=== PATIENT | female | born 1955 | race Caucasian/White ===

== ENCOUNTER 2019-08-04 12:22 | Inpatient (IN) | payer BC, MEDICARE, SELFPAY ==
[2019-08-04] VITALS (19 sets, daily range): BP systolic 113–140; BP diastolic 60–71; PULSE 73–106; RESP 27–56; TEMP 36.6–38.4; O2SAT 88–99; BMI 27.2
--- NOTE | ~2019-08-04 | XR_ITS ---
EXAMINATION: XR chest 1V portable DATE: 08/06/2019 05:51 INDICATION: Shortness of breath. Acute respiratory failure. TECHNIQUE: A single frontal view of the chest was obtained. COMPARISON: Chest single view 08/04/2019 FINDINGS: The patient is rotated to her right. There are airspace opacities in all right lung zones w ith relative sparing of the lung base. No pleural effusion or pneumothorax. Cardiomegaly is noted. Th ere are surgical clips in right axilla. IMPRESSION: 1. Right lung airspace opacities with improvement, consistent with pneumonia. Reviewed, dictated and finalized at location A.
--- NOTE | ~2019-08-04 | XR_ITS ---
EXAMINATION: XR chest 1V portable DATE: 08/04/2019 13:19 INDICATION: Shortness of breath. TECHNIQUE: A single frontal view of the chest was obtained. COMPARISON: None. FINDINGS: There are airspace opacities in all right lung zones with a peripheral predominance. There is mild atelectasis in left midlung zone. No pleural effusion or pneumothorax. There are prominent pa racardial fat pads. Surgical clips overlie right axilla. IMPRESSION: 1. Airspace opacities in all right lung zones with a peripheral predominance, consistent with pneumon ia. Reviewed, dictated and finalized at location A. IMPRESSION: 1. Airspace opacities in all right lung zones with a peripheral predominance, c onsistent with pneumonia.
--- NOTE | ~2019-08-04 | XR_ITS ---
XR chest 1V portable 08/09/2019 09:06 Indication: Follow-up infiltrates Procedure: AP portable chest Comparison: 08/07/2019 Findings: Heart size normal. Improving right upper lobe airspace disease. No edema, pleural effusion or pneumothorax. No acute osseous abnormality. Impression: 1: Improving right upper lobe airspace disease which may represent resolving pneumonia and/or atelect asis. Reviewed, dictated and finalized at location A. Impression: 1: Improving right upper lobe airspace disease which may represent resolving pn eumonia and/or atelectasis.
--- NOTE | ~2019-08-04 | CT_ITS ---
EXAMINATION: CTA chest PE protocol DATE: 08/06/2019 14:34 INDICATION: Acute respiratory failure. TECHNIQUE: Computed tomography angiography (CTA) of the chest was performed with 100 mL Omnipaque-350 intravenous contrast timed to evaluate the pulmonary arteries. Coronal maximum intensity projection 3D-reconstructions were created by the technologist. Automated exposure control and iterative reconst ruction technique were employed. The dose-length product was 684.00 mGy-cm. COMPARISON: Chest single view 08/06/2019 FINDINGS: There is mild emphysema. There is mild atelectasis in left lung. There are airspace and primo undglass opacities in right upper lobe, right middle lobe, and superior segment right lower lobe with air bronchograms, consistent with pneumonia. There is a small right pleural effusion. There is depen dent passive atelectasis in basilar right lower lobe. The heart size is normal. There are coronary ar yinka calcifications. No pericardial effusion. There is no pulmonary embolus. There is mild mediastina l and bilateral hilar lymphadenopathy. There is a 2.1 cm mass in left adrenal gland measuring soft ti ssue attenuation. There are changes of right mastectomy with right breast implant. There are bridging endplate osteophytes at multiple levels in the spine, consistent with diffuse idiopathic skeletal hy perostosis (DISH). There are hemangiomas in T6, T12, and L1 vertebral bodies. IMPRESSION: 1. Right lung pneumonia, worst in right upper lobe. 2. Small right pleural effusion. 3. Mild mediastinal and bilateral hilar lymphadenopathy, likely reactive. 4. No pulmonary embolus. 5. 2.1 cm left adrenal mass, which may be an adenoma or less likely metastatic disease. Reviewed, dictated and finalized at location A.
--- NOTE | ~2019-08-04 | XR_ITS ---
XR chest 1V portable DATE: 08/07/2019 05:39 INDICATION: Acute respiratory failure TECHNIQUE: Portable AP chest on 08/07/2019 at 0514 hours COMPARISON: 08/06/2019 portable AP chest at 0521 hours 08/06/2019 CT pulmonary scan FINDINGS: There is increased opacification of the right upper lobe consistent with right upper lobe c onsolidation, pneumonia. There is right lower lobe infiltrate as well. There is some volume loss of t he right lung compared to the left, with mild rightward shift of heart and mediastinum. The left lung appears essentially clear. No significant pleural fluid is evident. Surgical clips, right axillary area. Osteopenia. IMPRESSION: Increased right sided infiltrate involving particularly the right upper lobe. Reviewed, dictated and finalized at location A. IMPRESSION: Increased right sided infiltrate involving particularly the right u pper lobe.
--- NOTE | ~2019-08-04 | US_ITS ---
EXAMINATION: US venous doppler [facility] DATE: 08/05/2019 14:29 INDICATION: Shortness of breath. TECHNIQUE: Grayscale ultrasound images without and with compression and Doppler ultrasound images of the bilateral lower extremity veins were obtained. COMPARISON: None. FINDINGS: The visualized portions of right common femoral vein, profunda (deep) femoral vein, femoral vein, pop liteal vein, peroneal veins, posterior tibial veins, and greater saphenous vein outflow are patent. The visualized portions of left common femoral vein, profunda femoral vein, femoral vein, popliteal v ein, peroneal veins, posterior tibial veins, and greater saphenous vein outflow are patent. IMPRESSION: 1. No deep venous thrombosis. Reviewed, dictated and finalized at location A.
--- NOTE | 2019-08-04 12:23 | ECG_ITS ---
Measurements Intervals [place] Rate: 105 P: 43 MA: 138 QRS: 61 QRSD: 97 T: -29 QT: 299 QTc: 396 Interpretive Statements SINUS TACHYCARDIA BORDERLINE ST-T WAVE ABNORMALITY- ANTEROLAT/INF LEADS BASELINE WANDER- V4-V6 ABNORMAL ECG Electronically Signed On 08-04-2019 12:43:02 CDT by Tyrone Granados D.O.
--- NOTE | 2019-08-04 12:25 | ED.SOB ---
HPI - SOB/Dyspnea General Chief Complaint: Shortness of Breath/Dyspnea Stated Complaint: DIFFICULTY BREATHING History of Present Illness HPI Narrative: 64 yo female w/ h/o HTN BIBEMS from urgent care for SOB. She has had cough, congestion, and SOB for the past 3 days. Worsening in severity. Today developed fever, 101.3. She went to urgent care and was found to be hypoxic and transfered here for further evaluation. She is not aware of any sick contacts. She does not smoke and has no breathing problems at baseline. Related Data Home Medications Medication Instructions Recorded Confirmed chlorthalidone 25 mg PO DAILY 08/04/19 08/04/19 diphenhydramine-acetaminophen 1 tablet PO HS 08/04/19 08/04/19 [Tylenol PM Extra Strength] metoprolol succinate 37.5 mg PO HS 08/04/19 08/04/19 rosuvastatin 5 mg PO DAILY 08/04/19 08/04/19 zolpidem 5 mg PO HS 08/04/19 08/04/19 Allergies Allergy/AdvReac Type Severity Reaction Status Date / Time No Known Allergies Allergy Verified 08/04/19 13:10 Review of Systems Review of Systems: All systems reviewed & are unremarkable except as noted in HPI and below Constitutional: Constitutional: Reports fatigue and Reports fever(s) ENT: Denies sore throat Comments: Dry mouth Cardiovascular: Cardiovascular: Denies chest pain Respiratory: Respiratory: Reports chest congestion, Reports cough and Reports dyspnea Gastrointestinal: Gastrointestinal: Denies abdominal pain, Denies nausea and Denies vomiting Genitourinary: Genitourinary: Denies hematuria and Denies dysuria Musculoskeletal: Musculoskeletal: Denies back pain Neurologic: Denies confusion, Denies dizziness and Denies numbness Endocrine: Endocrine: Denies polydipsia and Denies polyuria Hematologic/Lymphatic: Hematologic/Lymphatic: Denies easy bleeding and Denies easy bruising PMFSH Past Medical History Medical History HTN (hypertension) Social History Social History (Updated 08/04/19 @ 12:30 by Seymour Carmichael MD) Smoking status: Light tobacco smoker Tobacco type: cigarettes Alcohol intake: former Substance use: never Spiritual care concerns: No Exam Const: General: alert and ill appearing acutely Nutritional Appearance: well nourished Orientation/consciousness: patient oriented x3 Other: mild distress HENMT: Mouth: Yes dry mucous membranes Eyes: Pupils: Equal, round and reactive pupils present Resp: Effort & Inspection: labored and tachypneic Auscultation: rhonchi Cardio: Rate: tachycardic Rhythm: regular rhythm GI: GI Palp: Yes Soft to palpation and No Tenderness to palpation present (GI) Skin: General skin exam: normal color Neuro: General: patient oriented x3, moves all extremities and CN's II-XI intact bilaterally Speech: normal speech Extrem: General: normal to inspection Course Vital Signs Vital signs: Vital Signs Pulse Oximetry 93 08/04/19 12:43 Temperature 38.3 C H 08/04/19 15:54 Pulse Rate 90 08/04/19 16:00 Respiratory Rate 32 H 08/04/19 15:54 Blood Pressure 117/64 08/04/19 15:54 Pulse Oximetry 90 08/04/19 15:54 MDM - SOB/Dyspnea MDM Narrative Medical decision making narrative: She will require admission due to new O2 requirement. CXR appears more like typical pneumonia. Will still obtain swab to rule out COVID. Differential Diagnosis Differential diagnosis: Likely congestive heart failure and community acquired pneumonia Medical Records Attestation: I reviewed the patient's medical records. Lab Data Attestation: I reviewed the patient's lab results. Result diagrams: 08/04/19 12:38 08/04/19 12:38 Labs: Lab Results 08/04/19 08/04/19 08/04/19 Range/Units 12:38 12:38 12:38 WBC 17.5 H (4.5-10.0) K/mm3 RBC 4.31 (4.2-5.4) M/mm3 Hgb 13.8 (12.0-15.0) g/dL Hct 40.0 (37.0-47.0) % MCV 92.8 (80-100) fl MCH 32.0 (26-34) pg MCHC 34.
[2019-08-04 12:52] LABS: Basophils Absolute Auto 0.1 K/mm3 (0.0-0.1); Basophils Percent Auto 0.3 % (0.2-1.2); Hemoglobin 13.8 g/dL (12.0-15.0); Immature Granulocyte Absolute 0.09 K/mm3 (0.00-0.031); Immature Granulocyte Percent A 0.5 % (0-0.5); Lymphocytes Absolute Auto 0.74 K/mm3 (0.9-3.2); Lymphocytes Percent Auto 4.2 % (18.3-44.2); Mean Corpuscular HGB Conc 34.5 g/dl (32-36); Mean Corpuscular Volume 92.8 fl (80-100); Mean Platelet Volume 11.2 fl (7.4-10.4); Monocytes Percent Auto 5.4 % (2.6-8.5); Neutrophils Absolute Auto 15.6 K/mm3 (1.3-6.7); Neutrophils Percent Auto 89.6 % (45.5-73.1); Platelet Count Result 142 k/mm3 (150-375); Red Blood Count 4.31 M/mm3 (4.2-5.4); Red Cell Distribution Width 13.8 % (11.5-14.5); White Blood Count 17.5 K/mm3 (4.5-10.0)
[2019-08-04 13:01] LABS: INR 1.2; Prothrombin Time 14.9 Seconds (11.1-14.7)
[2019-08-04 13:02] LABS: Partial Thromboplastin Time 28.6 SECONDS (22.3-36.8)
[2019-08-04 13:03] LABS: Lactic Acid Reflex 1.8 mmol/L (0.7-2.1)
[2019-08-04 13:09] LABS: Add Urine Microscopic? YES; Appearance Urine Clear (Clear); Bacteria Urine Trace /hpf; Bilirubin Urine Negative (Negative); Blood Urine 1+ (Negative); Color Urine Amber (Yellow); Glucose Urine UA Negative (Negative); Ketones Urine 1+ mg/dL (Negative); Leukocyte Esterase Ur Negative LEU/UL (Negative); Mucus Urine Rare /lpf; Nitrate Urine Negative (Negative); Protein Urine 2+ mg/dL (Negative); RBC Urine 21-50 /hpf (0-2); Specific Grav Ur 1.024 (1.001-1.035); Squamous Epithelial Cell Urine Moderate /hpf (Few); Transitional Epi Cells Urine Rare /hpf (None Seen)
[2019-08-04 13:10] LABS: Alanine Aminotransferase 32 U/L (4-35); Albumin Level 3.9 g/dL (3.5-5.1); Alkaline Phosphatase 122 U/L (38-126); Aspartate Amino Transferase 33 U/L (14-36); Bilirubin,Total 1.6 mg/dL (0.2-1.3); Blood Urea Nitrogen 18 mg/dL (7-17); Calcium 9.7 mg/dL (8.4-10.2); Carbon Dioxide 18 mmol/L (22-30); Chloride 103 mmol/L (98-107); Estimated Glomerular Filt Rate > 60; Glucose 168 mg/dL (65-105); Lactate Dehydrogenase 492 U/L (313-618); Potassium 3.4 mmol/L (3.4-5.0); Sodium 133 mmol/L (137-145)
[2019-08-04] MEDS: SODIUM CHLORIDE 0.9% IV 1,000 ML 999 ML IV CONT (13:14)
[2019-08-04 13:25] LABS: D Dimer 2.55 ug/mL (<0.48)
[2019-08-04 13:52] LABS: CRP 38.6 mg/dL (<1.0)
--- NOTE | 2019-08-04 15:46 | ADMGEN ---
This patient, Catrachito Silva, was admitted to 3 [facility] Surg Room 328-01. Patient/family oriented to hospital policies and general routines including ID bracelet, bed and alarms, visiting hours, pain management, procedures, bathroom and other care routines, personal items, smoking policy, room service/diet, and visiting hours. Valuables list has been completed. Information on how to activate the Rapid Response Team has been discussed. Patient/Family are encouraged to report perceived risks to care and to ask questions if they do not understand what they are told or what they should do.
[2019-08-04 19:32] LABS: Base Excess ABG -2.5 mEq/l (+/-2.0); HCO3 ABG 19.2 mEq/l (22.0-26.0); PCO2 ABG 25.3 mmHg (35.0-45.0); PO2 ABG 71.6 mmHg (80.0-100.0); Total Hemoglobin 13.2 g/dL (12.0-18.0); pH ABG 7.497 (7.350-7.450)
[2019-08-04 19:33] LABS: Fractional Inspired Oxygen 100 %; Modified Allen's Test Pass; Oxygen Content ABG 17.7 %vol (16.0-22.0); Oxyhemoglobin 95.2 % THb (90.0-100.0); PO2 FiO2 Ratio Arterial Blood 0.82 %; Site Drawn LEFT RADIAL
[2019-08-04 19:34] LABS: Device NON-REBREATHER MASK
--- NOTE | 2019-08-04 20:41 | PM.IMHP ---
H&P: HPI History of Present Illness Chief complaint: Acute respiratory failure with hypoxia/pneumonia Narrative: Catrachito Silva is a 64 year old female who stated that Friday back she started to feel ill. She said she felt hot when she woke up in the middle and I and then got chills and has been running a low-grade fever around 99 point something. She developed a cough as well and shortness of breath. She stated she has not been outside of the home except ago grocery shopping. She stated she is around other people that were mask as she did as well. The patient developed a fever 101.3 today and return urgent care. She was found to be hypoxic and was transferred here for further evaluation. Chest x-ray was read as air space opacities in all right lung zones with peripheral predominance, consistent with pneumonia. Her CRP was 30.6. Ferritin was not measured. Her respirations were noted to be in the 50s. I obtained ABGs pH 7.497, CO2 25.3, PO2 71.6, bicarb 19.2. Patient was initially placed on 6 L per nasal cannula was satting 89%. Then we placed her on a non-rebreather and a high-flow nasal cannula. A non-rebreather was on 15 L per nasal cannula. I then called the welfare administrator and explained the situation who agreed to have the patient transferred to ICU. Patient was given a L fluids. She was started on azithromycin and Rocephin. She is given Tylenol for the fever. COVID testing is pending. White count is 17.5. Neutrophil percentage 89.6. Was noted to be 2.55. Date of service 08/04/2019. Review of Systems Review of Systems: All systems reviewed & are unremarkable except as noted in HPI and below Constitutional: Constitutional: Reports as per HPI and Reports no additional constitutional complaints Eyes: Eyes: Reports as per HPI and Reports no additional eye complaints ENT: Reports system reviewed and no additional complaints, except as documented and Reports Normal hearing present Cardiovascular: Cardiovascular: Reports no additional cardiovascular complaints Respiratory: Respiratory: Reports no additional respiratory complaints and Reports no additional respiratory complaints Gastrointestinal: Gastrointestinal: Reports as per HPI and Reports no additional gastrointestinal complaints Musculoskeletal: Musculoskeletal: Reports no additional musculoskeletal complaints Integumentary/Breasts: Skin/Breast: Reports system reviewed and no additional complaints, except as docu and Reports as per HPI Neurologic: Reports system reviewed and no additional complaints, except as documented, Reports as per HPI and Reports Normal hearing present Psychiatric: Psychiatric: Reports no additional psychiatric complaints and Reports as per HPI Endocrine: Endocrine: Reports no additional endocrine complaints Hematologic/Lymphatic: Hematologic/Lymphatic: Reports no additional hematologic/lymphatic complaints Allergic/Immunologic: Allergic/Immunologic: Reports no additional allergic/immunologic complaints [facility] Past Medical History Medical History (Updated 08/04/19 @ 21:05 by Dione Hart NP) Breast cancer With a mastectomy and chemotherapy HTN (hypertension) HTN (hypertension) with goal to be determined Hyperlipidemia Surgical History Surgical History (Updated 08/04/19 @ 20:58 by Dione Hart NP) H/O right mastectomy H/O: hysterectomy Family History Family History (Updated 08/04/19 @ 20:58 by Dione Hart NP) Father Alcoholism Mother CAD (coronary artery disease) Social History Social History (Updated 08/04/19 @ 20:59 by Dione Hart NP) Social History: The patient lives with her and desires to have him as her durable power traffic law attorney for healthcare. She desires to be a full code. She has had 2 children. 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 No alcohol or illicit drugs Smoking status: Light tobacco smoker Tobacco type: cigarettes Alcohol intake: former Substance use: never Spirit
--- NOTE | 2019-08-04 20:49 | PC.NURSE ---
report given to ICU. All questions answered. Esteban (spouse) notified and all questions answered with him. Patient transferring to room ICU 3 per bed. On NRB 15 L.
[2019-08-04 21:06] LABS: SARS-CoV-2 RNA PCR Negative
--- NOTE | 2019-08-04 21:06 | PC.NURSE ---
2054 transferred to ICU 3 via bed.
[2019-08-04] MEDS: METOPROLOL SUCCINATE EXT REL 12.5 MG TABCR PO (21:23)
[2019-08-04] MEDS: METOPROLOL SUCCINATE EXT REL 25 MG TABCR PO (21:24)
[2019-08-04] MEDS: ENOXAPARIN 40 MG/0.4 ML SYRINGE SUB-Q ×2 (21:25→21:26)
[2019-08-04] MEDS: ROSUVASTATIN 5 MG TABLET PO (21:25)
[2019-08-04 21:39] LABS: NT Pro B Type Natriuretic Pept 644 PG/ML (5-100)
[2019-08-04 21:42] LABS: Troponin I < 0.012 ng/mL (0.000-0.034)
--- NOTE | 2019-08-04 23:22 | PC.NURSE ---
Pt Transferred from room 328 at around 2100 08/04/2019 report given by Maria T
[2019-08-04] MEDS: MELATONIN 5 MG TABLET PO (23:53)
[2019-08-05] VITALS (15 sets, daily range): BP systolic 90–124; BP diastolic 49–83; PULSE 65–83; RESP 23–38; TEMP 36.7–37.2; O2SAT 93–97
--- NOTE | 2019-08-05 | ECHO_ITS ---
Patient Info Name: Catrachito Silva Age: 64 years : 1955 Gender: Female Ht: 66 in Wt: 168 lbs BSA: 1.90 m2 HR: 741 bpm BP: 121 / 73 mmHg Technical Quality: Good Exam Date: 08/05/2019 7:42 AM Exam Location: [facility] Patient Status: Inpatient Admit Date: 08/04/2019 Staff Ordering Physician: Dione Hart NP Material Control Clerk: Dwayne May RDCS, RT Attending Provider: Chelsea Lee MD Referring Physician: Hailey SIM; Exam Type: CA echo doppler color flow Study Info Indications R06.02 - Shortness of breath Complete two-dimensional, color flow and Doppler transthoracic echocardiogram is performed. Summary 1. Left ventricular chamber dimension is normal. 2. Ventricular septum is sigmoid shaped. 3. Left ventricular systolic function is normal, estimated at 60-65%. 4. There is mildly increased left ventricular wall thickness. 5. The left ventricular diastolic function is grade I diastolic dysfunction. 6. E/e' 9 is minimally elevated. 7. Global longitudinal strain is normal at -18.0%. 8. Left atrial chamber dimension is mildly enlarged. 9. Right atrial chamber dimension is mildly enlarged. 10. There is mild aortic valve sclerosis. Left Ventricle E/e' 9 is minimally elevated. Global longitudinal strain is normal at -18.0%. Ventricular septum is sigmoid shaped. Left ventricular chamber dimension is normal. Left ventricular systolic function is normal, estimated at 60-65%. There is mildly increased left ventricular wall thickness. The left ventricular diastolic function is grade I diastolic dysfunction. Right Ventricle Right ventricular chamber dimension is normal. Right ventricular systolic function is normal. Left Atria Left atrial chamber dimension is mildly enlarged. Right Atria Right atrial chamber dimension is mildly enlarged. Aortic Valve The aortic valve is trileaflet. There is mild aortic valve sclerosis. There is no aortic valve stenosis. There is no aortic valve regurgitation. Pulmonic Valve There is no pulmonic regurgitation. Mitral Valve There is no mitral valve stenosis. There is no mitral valve regurgitation. Tricuspid Valve There is no tricuspid valve regurgitation. Pericardium/Pleural There is no pericardial effusion. Inferior Vena Cava Normal inferior vena cava with >50% collapse upon inspiration consistent with normal right atrial pressure, 5 mmHg. Aorta The aortic root size at the sinus of Valsalva is normal. Left Ventricular Outflow Tract Name Value Normal LVOT 2D LVOT Diameter 1.9 cm LVOT Doppler LVOT Peak Velocity 119 cm/s LVOT Peak Gradient 6 mmHg LVOT Mean Gradient 3 mmHg LVOT VTI 23 cm LVOT VTI/AV VTI Ratio 0.8 LVOT Stroke Volume 67 ml LVOT CO 4.9 l/min LVOT CI 2.6 l/min/m2 Mitral Valve Name
[2019-08-05 00:25] LABS: Alveolar/Arterial O2 Gradient 275.9 mmHg; Base Excess ABG -0.5 mEq/l (+/-2.0); Fractional Inspired Oxygen 53 %; HCO3 ABG 21.9 mEq/l (22.0-26.0); Oxygen Content ABG 16.7 %vol (16.0-22.0); Oxygen Saturation ABG 95.3 % (95.0-100.0); Oxyhemoglobin 93.4 % THb (90.0-100.0); PCO2 ABG 29.5 mmHg (35.0-45.0); Total Hemoglobin 12.7 g/dL (12.0-18.0); pH ABG 7.489 (7.350-7.450)
[2019-08-05 00:27] LABS: Device HIGH FLOW NASAL CANN; Modified Allen's Test Pass; Site Drawn LEFT RADIAL
[2019-08-05 06:08] LABS: Basophils Absolute Auto 0.1 K/mm3 (0.0-0.1); Basophils Percent Auto 0.4 % (0.2-1.2); Eosinophils Percent Auto 0.1 % (0-4.4); Hematocrit 36.7 % (37.0-47.0); Hemoglobin 12.5 g/dL (12.0-15.0); Immature Granulocyte Absolute 0.17 K/mm3 (0.00-0.031); Lymphocytes Absolute Auto 2.29 K/mm3 (0.9-3.2); Lymphocytes Percent Auto 13.6 % (18.3-44.2); Mean Corpuscular HGB Conc 34.1 g/dl (32-36); Mean Corpuscular Hemoglobin 32.3 pg (26-34); Mean Corpuscular Volume 94.8 fl (80-100); Mean Platelet Volume 11.8 fl (7.4-10.4); Monocytes Percent Auto 6.2 % (2.6-8.5); Neutrophils Absolute Auto 13.3 K/mm3 (1.3-6.7); Neutrophils Percent Auto 78.7 % (45.5-73.1); Platelet Count Result 157 k/mm3 (150-375); Red Blood Count 3.87 M/mm3 (4.2-5.4); Red Cell Distribution Width 14.1 % (11.5-14.5); White Blood Count 16.9 K/mm3 (4.5-10.0)
[2019-08-05 06:30] LABS: Alanine Aminotransferase 25 U/L (4-35); Albumin Level 3.4 g/dL (3.5-5.1); Alkaline Phosphatase 92 U/L (38-126); Aspartate Amino Transferase 24 U/L (14-36); Bilirubin,Total 0.8 mg/dL (0.2-1.3); Blood Urea Nitrogen 17 mg/dL (7-17); Calcium 9.6 mg/dL (8.4-10.2); Carbon Dioxide 22 mmol/L (22-30); Chloride 106 mmol/L (98-107); Estimated CRCL calculation 74 ml/min; Estimated Glomerular Filt Rate > 60; Glucose 107 mg/dL (65-105); Lactate Dehydrogenase 345 U/L (313-618); Potassium 3.2 mmol/L (3.4-5.0); Sodium 137 mmol/L (137-145)
[2019-08-05 06:36] LABS: Troponin I < 0.012 ng/mL (0.000-0.034)
[2019-08-05 07:09] LABS: CRP 42.2 mg/dL (<1.0)
--- NOTE | 2019-08-05 08:42 | WPDCNINT ---
Assessment and Plan Assessment and plan (1) Acute respiratory failure with hypoxia: Code(s): J96.01 - Acute respiratory failure with hypoxia Status: Acute Assessment and Plan: She is currently on high-flow oxygen with 50 L and 50% FiO2. Her oxygen saturation was in mid to high 90s. She has been having mild tachypnea but does not seems to be in respiratory distress. Had ABG did not show acute hypercarbic respiratory failure to suggest respiratory fatigue. Subjectively she is feeling better as well. Will keep a close eye on her respiratory status. Low threshold for intubation if she has increased work of breathing and developing signs of respiratory fatigue. Continue to monitor ABG and chest x-ray. Wean oxygen if tolerated. Oxygen saturation target will be above 90% (2) Community acquired pneumonia: Qualifiers: Laterality: right Lung location: unspecified part of lung Qualified Code(s): J18.9 - Pneumonia, unspecified organism Code(s): J18.9 - Pneumonia, unspecified organism Status: Acute Assessment and Plan: Continue empiric ceftriaxone and azithromycin. Follow cultures. Send sputum culture if she is able to produce any. Check Legionella and strep antigen in urine. Continue to monitor chest x-ray for worsening of the airspace disease. Currently most of the airspace disease is on the right side. Will check procalcitonin level. (3) Suspected COVID-19 virus infection: Code(s): Z20.828 - Contact with and (suspected) exposure to other viral communicable diseases Status: Acute Assessment and Plan: Her COVID 19 test has been reported as negative. Will resend the test is her clinical presentation, thoracic imaging and inflammatory marker being on the higher side is suggestive of COVID-19 pneumonia. My level of suspicion is high and will want to have a repeat COVID-19 test before she can be taken off precautions. Continue droplet and contact precautions. (4) HTN (hypertension) with goal to be determined: Code(s): I10 - Essential (primary) hypertension Status: Acute Assessment and Plan: Will hold off metoprolol for now. Few blood pressure reading has been borderline low. Continue to monitor hemodynamics closely. (5) Elevated d-dimer: Code(s): R79.89 - Other specified abnormal findings of blood chemistry Status: Acute Assessment and Plan: D-dimer has been elevated which may be as a result of possible COVID-19 phenomena. If 2nd COVID-19 test come back as negative as well than she may probably need CT of the chest to rule out PE. It will further delineate the lung parenchyma as well. Will get echo and Doppler ultrasound of the lower extremity. I will start empiric therapeutic Lovenox considering high D-dimer with suspected COVID-19/thromboembolic disease causing her significant hypoxia with not so abnormal chest x-ray. (6) Hyperlipidemia: Code(s): E78.5 - Hyperlipidemia, unspecified Status: Chronic Assessment and Plan: Continue rosuvastatin. Additional Plan DVT prophylaxis with subcu heparin GI prophylaxis not indicated Continue to keep her NPO for now because of her higher oxygen requirement. She can be started on clear liquid diet later today if her respiratory status is stable. Critical care time spent is more than 36 minutes Due to a high probability of clinically significant, life threatening deterioration, the patient required my highest level of preparedness to intervene emergently and I personally spent this critical care time directly and personally managing the patient. This critical care time included obtaining a history; examining the patient; pulse oximetry; ordering and review of studies; arranging urgent treatment with development of a management plan; evaluation of patient's response to treatment; frequent reassessment; and discussions with other providers. It w
[2019-08-05] MEDS: ROSUVASTATIN 5 MG TABLET PO (08:57)
[2019-08-05] MEDS: POTASSIUM CHLORIDE 20 MEQ PACKET (FOR LIQUID) 40 MEQ PO ×2 (10:42→18:10)
[2019-08-05 14:57] LABS: D Dimer 3.92 ug/mL (<0.48)
--- NOTE | 2019-08-05 17:07 | PM.IMPN ---
Progress Note: A&P Assessment and Plan (1) Community acquired pneumonia: Qualifiers: Laterality: right Lung location: unspecified part of lung Qualified Code(s): J18.9 - Pneumonia, unspecified organism Code(s): J18.9 - Pneumonia, unspecified organism Status: Acute Assessment and Plan: The patient was started on azithromycin Rocephin. Blood and sputum cultures are pending as well as urine antigens. Continue with inhalers at this time. Patient is on high-flow oxygen at this time. She is comfortable not laboring and no CO2 retention. Initial COVID is negative and will be repeated (2) Suspected COVID-19 virus infection: Code(s): Z20.828 - Contact with and (suspected) exposure to other viral communicable diseases Status: Acute Assessment and Plan: Initial testing is negative but will be retested with the slight elevation and several defer markers and degree of hypoxemia.. (3) Hyperlipidemia: Code(s): E78.5 - Hyperlipidemia, unspecified Status: Chronic Assessment and Plan: Continue with rosuvastatin. (4) Acute respiratory failure with hypoxia: Code(s): J96.01 - Acute respiratory failure with hypoxia Status: Acute Assessment and Plan: No CO2 retention and as stated above not laboring appears comfortable at present setting. 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 Subjective Date/time seen: 08/05/19 17:07 Interval history: Date of visit 08/04. 64-year-old white female hypertension admitted with fever chills shortness of breath found to have right-sided infiltrate. High-flow oxygen to maintain O2 saturations but comfortable. She said she is starting to cough of phlegm now. No further chest pain appetite fair Exam Narrative: Exam Narrative: Blood pressure 124/66 pulse 74 saturating 97% on high-flow 50% nasal cannula Pupils equal reactive light sclera anicteric Lungs some crackles right side posteriorly with faint end expiratory wheeze CV regular rate rhythm no murmurs Abdomen is soft nontender no masses Extremities without edema distal pulses are 2+ Neuro alert pleasant cooperative no focal deficits Objective Data Vital Signs Vital Signs: Vital Signs - 24 hr 08/04/19 18:00 08/04/19 18:40 08/04/19 19:03 Temperature 37.2 C 38.1 C H 38.1 C H Pulse Rate 94 97 Respiratory Rate 30 H 52 H Blood Pressure 120/62 135/70 Pulse Oximetry 91 88 L 08/04/19 19:27 08/04/19 19:35 08/04/19 20:00 Temperature 38.4 C H Pulse Rate 84 85 Respiratory Rate 44 H 56 H Blood Pressure Pulse Oximetry 96 97 98 08/04/19 21:00 08/04/19 21:15 08/04/19 21:23 Temperature 36.6 C Pulse Rate 76 73 79 Respiratory Rate 37 H 36 H Blood Pressure 124/67 Pulse Oximetry 98 96 08/04/19 21:24 08/04/19 22:00 08/05/19 00:00 Temperature Pulse Rate 79 73 71 Respiratory Rate 27 H 35 H Blood Pressure 113/69 108/68 Pulse Oximetry 96 96 08/05/19 02:00 08/05/19 04:00 08/05/19 06:00 Temperature Pulse Rate 68 68 70 Respiratory Rate 35 H 35 H 32 H Blood Pressure 90/49 L 90/49 L 121/73 Pulse Oximetry 94 94 96 08/05/19 08:00 08/05/19 08:38 08/05/19 10:00 Temperature Pulse Rate 73 71 65 Respiratory Rate 31 H 34 H Blood Pressure 120/72 Pulse Oximetry 94 94 08/05/19 12:00 08/05/19 14:00 08/05/19 14:55 Temperature 36.7 C Pulse Rate 75 70 74 Respiratory Rate 38 H 23 H Blood Pressure 124/67 Pulse Oxi
[2019-08-05] MEDS: ENOXAPARIN 80 MG/0.8 ML SYRINGE 75 MG SUB-Q (17:55)
[2019-08-05] MEDS: MELATONIN 5 MG TABLET PO (23:21)
[2019-08-06] VITALS (16 sets, daily range): BP systolic 94–137; BP diastolic 55–84; PULSE 65–91; RESP 19–40; TEMP 36.9–37.7; O2SAT 93–99
[2019-08-06 06:20] LABS: Hematocrit 33.9 % (37.0-47.0); Hemoglobin 11.5 g/dL (12.0-15.0); Mean Corpuscular HGB Conc 33.9 g/dl (32-36); Mean Corpuscular Volume 94.4 fl (80-100); Mean Platelet Volume 11.3 fl (7.4-10.4); Platelet Count Result 172 k/mm3 (150-375); Red Blood Count 3.59 M/mm3 (4.2-5.4); Red Cell Distribution Width 13.9 % (11.5-14.5); White Blood Count 14.8 K/mm3 (4.5-10.0)
[2019-08-06] MEDS: ENOXAPARIN 80 MG/0.8 ML SYRINGE 75 MG SUB-Q (06:33)
[2019-08-06 06:34] LABS: D Dimer 3.48 ug/mL (<0.48)
[2019-08-06 06:59] LABS: Blood Urea Nitrogen 15 mg/dL (7-17); CRP 23.1 mg/dL (<1.0); Carbon Dioxide 23 mmol/L (22-30); Chloride 105 mmol/L (98-107); Estimated CRCL calculation 88 ml/min; Estimated Glomerular Filt Rate > 60; Glucose 94 mg/dL (65-105); Magnesium 1.7 mg/dL (1.6-2.3); Phosphorus 3.7 mg/dL (2.5-4.5); Potassium 3.5 mmol/L (3.4-5.0); Sodium 135 mmol/L (137-145)
[2019-08-06] MEDS: ROSUVASTATIN 5 MG TABLET PO (08:22)
[2019-08-06] MEDS: FAMOTIDINE 20 MG TABLET PO (08:23)
--- NOTE | 2019-08-06 08:30 | WPDINTPN ---
Progress Note: A&P Assessment and Plan (1) Acute respiratory failure with hypoxia: Code(s): J96.01 - Acute respiratory failure with hypoxia Status: Acute Assessment and Plan: She is currently on high-flow oxygen with 45 L and 45% FiO2. Oxygen saturation in mid 90s. She become more hypoxic with minimal exertion like attending bedside commode. Will continue to wean oxygen if tolerated. Oxygen saturation target will be above 90%. If her FiO2 is down to 30% along with flow in 30-35 L range then she can be transitioned to Oxy mask/Oxymizer. She has been having mild tachypnea but does not seems to be in respiratory distress. Had ABG did not show acute hypercarbic respiratory failure to suggest respiratory fatigue. Subjectively she is feeling better as well. Will keep a close eye on her respiratory status. Low threshold for intubation if she has increased work of breathing and developing signs of respiratory fatigue. Continue to monitor ABG and chest x-ray. (2) Community acquired pneumonia: Qualifiers: Laterality: right Lung location: unspecified part of lung Qualified Code(s): J18.9 - Pneumonia, unspecified organism Code(s): J18.9 - Pneumonia, unspecified organism Status: Acute Assessment and Plan: Continue empiric ceftriaxone and azithromycin. Follow cultures. Legionella and strep antigen in urine are pending. Continue to monitor chest x-ray for worsening of the airspace disease. Currently most of the airspace disease is on the right side. Procalcitonin level is pending as well. (3) Suspected COVID-19 virus infection: Code(s): Z20.828 - Contact with and (suspected) exposure to other viral communicable diseases Status: Acute Assessment and Plan: Her COVID 19 test has been reported as negative. Repeat COVID-19 testing is is reported as negative as well. Discontinue droplet and contact precaution. (4) HTN (hypertension) with goal to be determined: Code(s): I10 - Essential (primary) hypertension Status: Acute Assessment and Plan: Will hold off metoprolol for now. Few blood pressure reading has been borderline low. Continue to monitor hemodynamics closely. (5) Elevated d-dimer: Code(s): R79.89 - Other specified abnormal findings of blood chemistry Status: Acute Assessment and Plan: D-dimer has been elevated which was thought to be as a process of COVID 19 infection but since 2 testing has been negative so she need to be ruled out for thromboembolic disease with CTA of the chest. It may explain the degree of hypoxia she has. It will also show the lung parenchyma more closely if she does not have PE. Doppler ultrasound has been reported to be negative for DVT. Echocardiogram did not show any evidence of right heart strain. Continue therapeutic Lovenox until COVID-19 repeat testing is negative and CTA does not show any thromboembolic disease. (6) Hyperlipidemia: Code(s): E78.5 - Hyperlipidemia, unspecified Status: Chronic Assessment and Plan: Continue rosuvastatin. Additional Plan DVT prophylaxis with therapeutic Lovenox GI prophylaxis not indicated. Will discontinue Pepcid. She has been insisting on regular diet. She has been started on it. If she remains stable later today then she will be downgraded to IMU status. Critical care time spent is more than 36 minutes Due to a high probability of clinically significant, life threatening deterioration, the patient required my highest level of preparedness to intervene emergently and I personally spent this critical care time directly and personally managing the patient. This critical care time included obtaining a history; examining the patient; pulse oximetry; ordering and review of studies; arranging urgent treatment with development of a management plan; evaluation of patient's response to treatment; frequent reas
[2019-08-06 12:55] LABS: SARS-CoV-2 RNA PCR Negative
--- NOTE | 2019-08-06 16:08 | PM.IMPN ---
Progress Note: A&P Assessment and Plan (1) Community acquired pneumonia: Qualifiers: Laterality: right Lung location: unspecified part of lung Qualified Code(s): J18.9 - Pneumonia, unspecified organism Code(s): J18.9 - Pneumonia, unspecified organism Status: Acute Assessment and Plan: The patient was started on azithromycin Rocephin D#3.. Blood and sputum cultures negative but urine antigens still pending. Continue with inhalers at this time. Patient is on high-flow oxygen at this time. She is comfortable not laboring and no CO2 retention. Initial COVID is negative as is repeat. repeat cxr today slightly improved (2) Suspected COVID-19 virus infection: Code(s): Z20.828 - Contact with and (suspected) exposure to other viral communicable diseases Status: Acute Assessment and Plan: negative x 2 so isolation d/tiffany. (3) Hyperlipidemia: Code(s): E78.5 - Hyperlipidemia, unspecified Status: Chronic Assessment and Plan: Continue with rosuvastatin. (4) Acute respiratory failure with hypoxia: Code(s): J96.01 - Acute respiratory failure with hypoxia Status: Acute Assessment and Plan: No CO2 retention and as stated above not laboring appears comfortable at present setting. 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 Subjective Date/time seen: 08/06/19 16:08 Interval history: Date of visit 08/05. 64-year-old white female hypertension admitted with fever, chills, shortness of breath found to have right-sided infiltrate. High-flow oxygen to maintain O2 saturations but comfortable. She said she is still coughing up phlegm . No further chest pain appetite still not good Exam Narrative: Exam Narrative: Blood pressure 130/73 pulse 86 saturating 92% on high-flow 45% nasal cannula Pupils equal reactive light sclera anicteric Lungs some crackles right side posteriorly CV regular rate rhythm no murmurs Abdomen is soft nontender no masses Extremities without edema distal pulses are 2+ Neuro alert pleasant cooperative no focal deficits Objective Data Vital Signs Vital Signs: Vital Signs - 24 hr 08/05/19 18:00 08/05/19 20:00 08/05/19 21:42 Temperature 37.2 C Pulse Rate 78 83 Respiratory Rate 24 H Blood Pressure 120/83 Pulse Oximetry 94 93 08/05/19 22:00 08/06/19 00:00 08/06/19 00:45 Temperature 37.3 C Pulse Rate 75 80 Respiratory Rate 38 H 32 H Blood Pressure 110/60 107/69 Pulse Oximetry 95 94 08/06/19 02:00 08/06/19 04:00 08/06/19 05:45 Temperature 37.2 C Pulse Rate 72 72 81 Respiratory Rate 28 H 35 H 38 H Blood Pressure 118/71 105/55 L 127/67 Pulse Oximetry 99 94 94 08/06/19 06:00 08/06/19 08:00 08/06/19 08:25 Temperature 37.2 C Pulse Rate 85 71 91 Respiratory Rate 40 H Blood Pressure 94/84 L Pulse Oximetry 95 95 08/06/19 09:07 08/06/19 10:00 08/06/19 12:00 Temperature 37.5 C Pulse Rate 77 81 Respiratory Rate 34 H 19 Blood Pressure 115/67 128/66 Pulse Oximetry 93 96 95 08/06/19 14:00 Temperature Pulse Rate 86 Respiratory Rate 35 H Blood Pressure 131/72 Pulse Oximetry 95 Intake/Output Intake/Output: Intake & Output 08/03/19 08/04/19 08/05/19 08/06/19 23:59 23:59 23:59 23:59 Intake Total 1650 1415 630 Output Total 350 1200 Balance 1650 1065 -570 Meds/Results Medications: Active Medications Generic Name Dose Route Start Last Admin Trade Name Freq PRN Reason Stop Dose Admin Albuterol 1 puff 08/04/19 18:52
[2019-08-06] MEDS: ALBUTEROL SULFATE (*SP) AEROSOL 1 PUFF INHALATION (20:01)
[2019-08-06] MEDS: MELATONIN 5 MG TABLET PO (20:45)
[2019-08-06] MEDS: ACETAMINOPHEN 325 MG TABLET 650 MG PO (21:55)
[2019-08-07] VITALS (17 sets, daily range): BP systolic 102–137; BP diastolic 47–95; PULSE 56–101; RESP 20–34; TEMP 35.5–36.9; O2SAT 90–98
[2019-08-07 03:28] LABS: Hematocrit 33.3 % (37.0-47.0); Hemoglobin 11.3 g/dL (12.0-15.0); Mean Corpuscular HGB Conc 33.9 g/dl (32-36); Mean Corpuscular Hemoglobin 32.4 pg (26-34); Mean Corpuscular Volume 95.4 fl (80-100); Mean Platelet Volume 10.9 fl (7.4-10.4); Platelet Count Result 211 k/mm3 (150-375); Red Blood Count 3.49 M/mm3 (4.2-5.4); Red Cell Distribution Width 13.9 % (11.5-14.5)
[2019-08-07 03:43] LABS: Blood Urea Nitrogen 11 mg/dL (7-17); Calcium 9.1 mg/dL (8.4-10.2); Carbon Dioxide 24 mmol/L (22-30); Chloride 104 mmol/L (98-107); Estimated CRCL calculation 88 ml/min; Estimated Glomerular Filt Rate > 60; Glucose 99 mg/dL (65-105); Magnesium 1.8 mg/dL (1.6-2.3); Phosphorus 4.8 mg/dL (2.5-4.5); Potassium 3.3 mmol/L (3.4-5.0); Sodium 133 mmol/L (137-145)
[2019-08-07] MEDS: ROSUVASTATIN 5 MG TABLET PO (08:27)
--- NOTE | 2019-08-07 11:16 | WPDINTPN ---
Progress Note: A&P Assessment and Plan (1) Acute respiratory failure with hypoxia: Code(s): J96.01 - Acute respiratory failure with hypoxia Status: Acute Assessment and Plan: She is currently on high-flow oxygen with 40 L and 40% FiO2. Oxygen saturation in mid 90s. She become more hypoxic with minimal exertion like attending bedside commode. Will continue to wean oxygen if tolerated. Oxygen saturation target will be above 90%. If her FiO2 is down to 30% along with flow in 30-35 L range then she can be transitioned to Oxy mask/Oxymizer. She has been having mild tachypnea but does not seems to be in respiratory distress. Subjectively she is feeling better as well. Will keep a close eye on her respiratory status. Continue to monitor ABG and chest x-ray on p.r.n. basis. CT scan of the chest done yesterday was negative for PE but with extensive infiltrate with multiple lobar involvement on the right side. (2) Community acquired pneumonia: Qualifiers: Laterality: right Lung location: unspecified part of lung Qualified Code(s): J18.9 - Pneumonia, unspecified organism Code(s): J18.9 - Pneumonia, unspecified organism Status: Acute Assessment and Plan: Continue empiric ceftriaxone and azithromycin. Follow cultures. Legionella and strep antigen in urine are pending. Continue to monitor chest x-ray for worsening of the airspace disease. Currently most of the airspace disease is on the right side. CT scan showed multiple lobar involvement on the right side. (3) Suspected COVID-19 virus infection: Code(s): Z20.828 - Contact with and (suspected) exposure to other viral communicable diseases Status: Acute Assessment and Plan: Her COVID 19 test has been reported as negative. Repeat COVID-19 testing is is reported as negative as well. Discontinue droplet and contact precaution. (4) HTN (hypertension) with goal to be determined: Code(s): I10 - Essential (primary) hypertension Status: Acute Assessment and Plan: Will hold off metoprolol for now. Few blood pressure reading has been borderline low. Continue to monitor hemodynamics closely. (5) Elevated d-dimer: Code(s): R79.89 - Other specified abnormal findings of blood chemistry Status: Acute Assessment and Plan: D-dimer has been elevated which was thought to be as a process of COVID 19 infection but since 2 testing has been negative so she need to be ruled out for thromboembolic disease with CTA of the chest. CT of the chest has been negative for PE but showed extensive infiltrate with multiple lobar involvement on the right side. Doppler ultrasound has been reported to be negative for DVT. Echocardiogram did not show any evidence of right heart strain. Lovenox has been discontinued yesterday. (6) Hyperlipidemia: Code(s): E78.5 - Hyperlipidemia, unspecified Status: Chronic Assessment and Plan: Continue rosuvastatin. (7) COPD exacerbation: Code(s): J44.1 - Chronic obstructive pulmonary disease with (acute) exacerbation Status: Acute Assessment and Plan: She has a 30 pack-year history of smoking. She was never diagnosed to have any obstructive lung disease in the past. She is wheezing today with significant symptoms of cough as well. Will give her 6 doses of IV Solu-Medrol and reassess. If she stops wheezing then can discontinue steroids at that time. She is on bronchodilator on p.r.n. basis but will start her on DuoNebs on standing basis every 6 hours in addition to keep her on a as needed basis as well. Additional Plan DVT prophylaxis with subcu heparin since therapeutic Lovenox has been discontinued. GI prophylaxis not indicated. She has been insisting on regular diet. She can be downgraded to IMU status. Subjective Date/time seen: 08/07/19 11:16 She has been weaned down to 40
[2019-08-07] MEDS: POTASSIUM CHLORIDE 20 MEQ TABLET.ER 40 MEQ PO ×2 (12:32→18:06)
[2019-08-07] MEDS: HEPARIN SODIUM 5,000 UNITS/ML VIAL 5000 UNITS SUB-Q ×2 (13:35→21:00)
[2019-08-07] MEDS: methylPREDNISolone SOD SUCC 125 MG VIAL 60 MG IV PUSH ×2 (13:35→21:00)
[2019-08-07] MEDS: ALBUTEROL SULFATE NEB 2.5 MG/0.5 ML INH INHALATION ×2 (14:24→19:48)
[2019-08-07] MEDS: IPRATROPIUM BR 0.02% INH SOLN 0.5 MG/2.5 ML VIAL INHALATION ×2 (14:24→19:48)
--- NOTE | 2019-08-07 15:38 | PC.NURSE ---
This patient, Catrachito Silva, was transferred to [ [id number]] on 08/07/19 at 1500. Personal belongings sent with patient. Belongings list checked and signed with receiving [ ]. Report given to [ NICK Riggs.. Appropriate documentation sent with patient.
--- NOTE | 2019-08-07 16:17 | PM.IMPN ---
Progress Note: A&P Assessment and Plan (1) Community acquired pneumonia: Qualifiers: Laterality: right Lung location: unspecified part of lung Qualified Code(s): J18.9 - Pneumonia, unspecified organism Code(s): J18.9 - Pneumonia, unspecified organism Status: Acute Assessment and Plan: The patient was started on azithromycin Rocephin D#4.. Blood and sputum cultures negative but urine antigens still pending. Continue with inhalers at this time. Patient is on high-flow oxygen at this time. She is comfortable not laboring and no CO2 retention. solumedrol decreased to q 8 H Initial COVID is negative as is repeat. repeat cxr today not much change to slightly more infiltrate RUL (2) Suspected COVID-19 virus infection: Code(s): Z20.828 - Contact with and (suspected) exposure to other viral communicable diseases Status: Acute Assessment and Plan: negative x 2 so isolation d/tiffany. (3) Hyperlipidemia: Code(s): E78.5 - Hyperlipidemia, unspecified Status: Chronic Assessment and Plan: Continue with rosuvastatin. (4) Acute respiratory failure with hypoxia: Code(s): J96.01 - Acute respiratory failure with hypoxia Status: Acute Assessment and Plan: No CO2 retention and as stated above not laboring appears comfortable at present setting. 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 Subjective Date/time seen: 08/07/19 16:17 Interval history: Date of visit 08/06. 64-year-old white female hypertension admitted with fever, chills, shortness of breath found to have right-sided infiltrate. High-flow oxygen to maintain O2 saturations but comfortable. She said she is still coughing up phlegm . No further chest pain appetite still poor Exam Narrative: Exam Narrative: Blood pressure 122/68 pulse 80 saturating 96% on high-flow 40% nasal cannula Pupils equal reactive light sclera anicteric Lungs some crackles right side posteriorly as before CV regular rate rhythm no murmurs Abdomen is soft nontender no masses Extremities without edema distal pulses are 2+ Neuro alert pleasant cooperative no focal deficits Objective Data Vital Signs Vital Signs: Vital Signs - 24 hr 08/06/19 18:00 08/06/19 20:00 08/06/19 22:00 Temperature 37.7 C H Pulse Rate 84 79 90 Respiratory Rate 39 H 26 H 28 H Blood Pressure 127/70 137/70 136/62 Pulse Oximetry 97 95 95 08/07/19 00:00 08/07/19 02:00 08/07/19 04:00 Temperature Pulse Rate 56 L 61 74 Respiratory Rate 24 H 27 H 34 H Blood Pressure 102/47 L 126/70 132/68 Pulse Oximetry 98 97 94 08/07/19 06:00 08/07/19 08:00 08/07/19 10:00 Temperature 36.8 C 36.9 C Pulse Rate 69 68 92 Respiratory Rate 32 H 25 H 25 H Blood Pressure 108/59 L 117/89 122/60 Pulse Oximetry 94 95 94 08/07/19 10:27 08/07/19 12:00 08/07/19 14:00 Temperature Pulse Rate 77 81 Respiratory Rate 31 H 26 H Blood Pressure 124/95 H 122/69 Pulse Oximetry 97 96 91 08/07/19 14:24 08/07/19 14:40 Temperature Pulse Rate 81 90 Respiratory Rate 26 H 26 H Blood Pressure Pulse Oximetry Intake/Output Intake/Output: Intake & Output 08/04/19 08/05/19 08/06/19 08/07/19 23:59 23:59 23:59 23:59 Intake Total 1650 1415 870 780 Output Total 350 1200 1100 Balance 1650 1065 -330 -320 Meds/Results Medications: Active Medications Generic Name Dose Route Start Last Admin Trade Name Freq PRN Reason Stop Dose Admin Acetaminophen 650 mg 08/06/19 21:46 08/06/19 21:55 Tylenol Tablet PO
[2019-08-07] MEDS: MELATONIN 5 MG TABLET PO (21:00)
[2019-08-07] MEDS: ACETAMINOPHEN 325 MG TABLET 650 MG PO (21:09)
[2019-08-08] VITALS (23 sets, daily range): BP systolic 125–145; BP diastolic 54–78; PULSE 51–94; RESP 18–30; TEMP 35.5–36.1; O2SAT 90–98
[2019-08-08] MEDS: IPRATROPIUM BR 0.02% INH SOLN 0.5 MG/2.5 ML VIAL INHALATION ×4 (02:25→20:24)
[2019-08-08] MEDS: ALBUTEROL SULFATE NEB 2.5 MG/0.5 ML INH INHALATION ×4 (02:25→20:24)
[2019-08-08 04:27] LABS: Basophils Percent Auto 0.3 % (0.2-1.2); Hematocrit 36.3 % (37.0-47.0); Hemoglobin 12.3 g/dL (12.0-15.0); Immature Granulocyte Absolute 0.49 K/mm3 (0.00-0.031); Immature Granulocyte Percent A 3.2 % (0-0.5); Lymphocytes Absolute Auto 1.41 K/mm3 (0.9-3.2); Lymphocytes Percent Auto 9.1 % (18.3-44.2); Mean Corpuscular HGB Conc 33.9 g/dl (32-36); Mean Corpuscular Hemoglobin 31.9 pg (26-34); Mean Corpuscular Volume 94.3 fl (80-100); Mean Platelet Volume 10.6 fl (7.4-10.4); Monocytes Absolute Auto 0.4 K/mm3 (0.1-0.6); Monocytes Percent Auto 2.8 % (2.6-8.5); Neutrophils Absolute Auto 13.1 K/mm3 (1.3-6.7); Neutrophils Percent Auto 84.6 % (45.5-73.1); Platelet Count Result 313 k/mm3 (150-375); Red Blood Count 3.85 M/mm3 (4.2-5.4); Red Cell Distribution Width 13.4 % (11.5-14.5); White Blood Count 15.5 K/mm3 (4.5-10.0)
[2019-08-08 04:37] LABS: Blood Urea Nitrogen 13 mg/dL (7-17); Calcium 10.1 mg/dL (8.4-10.2); Carbon Dioxide 27 mmol/L (22-30); Chloride 104 mmol/L (98-107); Estimated CRCL calculation 98 ml/min; Estimated Glomerular Filt Rate > 60; Glucose 170 mg/dL (65-105); Potassium 4.1 mmol/L (3.4-5.0); Sodium 137 mmol/L (137-145)
[2019-08-08] MEDS: HEPARIN SODIUM 5,000 UNITS/ML VIAL 5000 UNITS SUB-Q ×3 (06:36→20:13)
[2019-08-08] MEDS: methylPREDNISolone SOD SUCC 125 MG VIAL 60 MG IV PUSH ×2 (06:36→15:05)
[2019-08-08] MEDS: ROSUVASTATIN 5 MG TABLET PO (08:19)
[2019-08-08 12:59] LABS: Pneumococcal Antigen Urine Detected (Not Detected)
--- NOTE | 2019-08-08 15:56 | PM.IMPN ---
Progress Note: A&P Assessment and Plan (1) Community acquired pneumonia: Qualifiers: Laterality: right Lung location: unspecified part of lung Qualified Code(s): J18.9 - Pneumonia, unspecified organism Code(s): J18.9 - Pneumonia, unspecified organism Status: Acute Assessment and Plan: The patient was started on azithromycin Rocephin D#5.. Blood and sputum cultures negative but urine antigen for strep +. Continue with inhalers at this time. Patient is on high-flow oxygen at this time. She is comfortable not laboring and no CO2 retention. solumedrol decreased to q 12 H Initial COVID is negative as is repeat. repeat cxr 08/06 not much change to slightly more infiltrate RUL (2) Suspected COVID-19 virus infection: Code(s): Z20.828 - Contact with and (suspected) exposure to other viral communicable diseases Status: Acute Assessment and Plan: negative x 2 so isolation d/tiffany. (3) Hyperlipidemia: Code(s): E78.5 - Hyperlipidemia, unspecified Status: Chronic Assessment and Plan: Continue with rosuvastatin. (4) Acute respiratory failure with hypoxia: Code(s): J96.01 - Acute respiratory failure with hypoxia Status: Acute Assessment and Plan: No CO2 retention and as stated above not laboring appears comfortable at present setting. 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 Subjective Date/time seen: 08/08/19 15:56 Interval history: Date of visit 08/07. 64-year-old white female hypertension admitted with fever, chills, shortness of breath found to have right-sided infiltrate. High-flow oxygen to maintain O2 saturations but comfortable. She said she is still coughing up phlegm . No further chest pain appetite still poor . Overall feels better than yesterday Exam Narrative: Exam Narrative: Blood pressure 122/68 pulse 80 saturating 96% on high-flow 40% nasal cannula Pupils equal reactive light sclera anicteric Lungs some crackles right side posteriorly as before CV regular rate rhythm no murmurs Abdomen is soft nontender no masses Extremities without edema distal pulses are 2+ Neuro alert pleasant cooperative no focal deficits Objective Data Vital Signs Vital Signs: Vital Signs - 24 hr 08/07/19 16:00 08/07/19 18:00 08/07/19 19:35 Temperature 35.5 C L 36.9 C Pulse Rate 101 H 97 83 Respiratory Rate 20 22 H Blood Pressure 125/70 137/73 Pulse Oximetry 93 91 08/07/19 19:49 08/07/19 20:00 08/07/19 22:00 Temperature Pulse Rate 82 88 73 Respiratory Rate 22 H 22 H Blood Pressure Pulse Oximetry 90 08/08/19 00:00 08/08/19 00:42 08/08/19 02:25 Temperature 36.1 C L Pulse Rate 73 59 L 65 Respiratory Rate 20 18 Blood Pressure 127/62 Pulse Oximetry 93 08/08/19 04:00 08/08/19 05:48 08/08/19 08:00 Temperature 36.1 C L 35.5 C L Pulse Rate 72 71 88 Respiratory Rate 22 H 30 H Blood Pressure 145/73 H 143/78 H Pulse Oximetry 91 90 08/08/19 08:07 08/08/19 08:09 08/08/19 08:20 Temperature Pulse Rate 67 71 Respiratory Rate 20 20 Blood Pressure Pulse Oximetry 90 08/08/19 10:30 08/08/19 12:00 08/08/19 13:30 Temperature 36.0 C L Pulse Rate 87 80 79 Respiratory Rate 24 H 20 Blood Pressure 125/54 L Pulse Oximetry 94 08/08/19 13:43 08/08/19 14:00 Temperature Pulse Rate 78 84 Respiratory Rate 20 Blood Pressure Pulse Oximetry Intake/Output Intake/Output: Intake & Output 08/05/19 08/06/19 08/07/19 08/08/19 23:59 23:59 23:59 23:59 Inta
[2019-08-08] MEDS: methylPREDNISolone SOD SUCC 40 MG VIAL IV PUSH (20:13)
[2019-08-08] MEDS: MELATONIN 5 MG TABLET PO (20:13)
[2019-08-09] VITALS (25 sets, daily range): BP systolic 127–142; BP diastolic 68–79; PULSE 45–89; RESP 20–24; TEMP 36–36.6; O2SAT 91–99
[2019-08-09] MEDS: IPRATROPIUM BR 0.02% INH SOLN 0.5 MG/2.5 ML VIAL INHALATION ×4 (01:44→19:49)
[2019-08-09] MEDS: ALBUTEROL SULFATE NEB 2.5 MG/0.5 ML INH INHALATION ×4 (01:45→19:49)
[2019-08-09 04:35] LABS: Basophils Absolute Auto 0.1 K/mm3 (0.0-0.1); Basophils Percent Auto 0.4 % (0.2-1.2); Hematocrit 33.7 % (37.0-47.0); Hemoglobin 11.3 g/dL (12.0-15.0); Immature Granulocyte Absolute 0.78 K/mm3 (0.00-0.031); Immature Granulocyte Percent A 3.3 % (0-0.5); Lymphocytes Absolute Auto 2.32 K/mm3 (0.9-3.2); Lymphocytes Percent Auto 9.8 % (18.3-44.2); Mean Corpuscular HGB Conc 33.5 g/dl (32-36); Mean Corpuscular Hemoglobin 32.5 pg (26-34); Mean Corpuscular Volume 96.8 fl (80-100); Mean Platelet Volume 10.5 fl (7.4-10.4); Monocytes Absolute Auto 0.9 K/mm3 (0.1-0.6); Monocytes Percent Auto 3.9 % (2.6-8.5); Neutrophils Absolute Auto 19.6 K/mm3 (1.3-6.7); Neutrophils Percent Auto 82.6 % (45.5-73.1); Platelet Count Result 346 k/mm3 (150-375); Red Blood Count 3.48 M/mm3 (4.2-5.4); White Blood Count 23.7 K/mm3 (4.5-10.0)
[2019-08-09 05:57] LABS: Blood Urea Nitrogen 19 mg/dL (7-17); Calcium 9.2 mg/dL (8.4-10.2); Carbon Dioxide 23 mmol/L (22-30); Chloride 107 mmol/L (98-107); Estimated CRCL calculation 88 ml/min; Estimated Glomerular Filt Rate > 60; Glucose 141 mg/dL (65-105); Potassium 4.2 mmol/L (3.4-5.0); Sodium 136 mmol/L (137-145)
[2019-08-09] MEDS: HEPARIN SODIUM 5,000 UNITS/ML VIAL 5000 UNITS SUB-Q (06:16)
[2019-08-09] MEDS: ROSUVASTATIN 5 MG TABLET PO (08:17)
[2019-08-09] MEDS: methylPREDNISolone SOD SUCC 40 MG VIAL IV PUSH (08:18)
--- NOTE | 2019-08-09 09:22 | P.CDI_ITS ---
CDI Query Clarification Request -Community acquired pneumonia has been documented -Urine pneumococcal antigen detected - Blood and sputum cultures negative but urine antigen for strep + documented Please further clarify if strep is: * The causative organism for the pneumonia * Not the causative organism for the pneumonia * Unable to determine <Farzaneh Prater RN - Last Filed: 08/09/19 09:35>
--- NOTE | 2019-08-09 09:22 | WPDCDIQUERY2 ---
CDI Query Clarification Request -Community acquired pneumonia has been documented -Urine pneumococcal antigen detected - Blood and sputum cultures negative but urine antigen for strep + documented Please further clarify if strep is: The causative organism for the pneumonia Not the causative organism for the pneumonia Unable to determine <Farzaneh Prater RN - Last Filed: 08/09/19 09:35>
--- NOTE | 2019-08-09 10:55 | PM.IMPN ---
Progress Note: A&P Assessment and Plan (1) Community acquired pneumonia: Qualifiers: Laterality: right Lung location: unspecified part of lung Qualified Code(s): J18.9 - Pneumonia, unspecified organism Code(s): J18.9 - Pneumonia, unspecified organism Status: Acute Assessment and Plan: The patient was started on azithromycin Rocephin D#6.. Blood and sputum cultures negative but urine antigen for strep + returned 08/07 so azithromycin d/tiffany. Thus pneumoccal pna. Continue with inhalers at this time. Patient is on high-flow oxygen at this time. She is comfortable not laboring and no CO2 retention. solumedrol d/tiffany today with no bronchspasm. Initial COVID is negative as is repeat. repeat cxr 08/08 today improved infiltrate RUL suspect elevated WBC from steroids or delayed response, since clinically much better and improved xray (2) Suspected COVID-19 virus infection: Code(s): Z20.828 - Contact with and (suspected) exposure to other viral communicable diseases Status: Acute Assessment and Plan: negative x 2 so isolation d/tiffany. (3) Hyperlipidemia: Code(s): E78.5 - Hyperlipidemia, unspecified Status: Chronic Assessment and Plan: Continue with rosuvastatin. (4) Acute respiratory failure with hypoxia: Code(s): J96.01 - Acute respiratory failure with hypoxia Status: Acute Assessment and Plan: No CO2 retention and as stated above not laboring appears comfortable at present setting. Continue to monitor and taper as possible, hopefully darcie not need 02 at d/c (5) HTN (hypertension) with goal to be determined: Code(s): I10 - Essential (primary) hypertension Status: Acute Assessment and Plan: Pressure starting to rise so will start hs metoprolol back (6) Elevated d-dimer: Code(s): R79.89 - Other specified abnormal findings of blood chemistry Status: Acute Assessment and Plan: Venous Doppler negative and CTA neg for PE 08/05, prophylactic lovenox. Subjective Date/time seen: 08/09/19 10:55 Interval history: Date of visit 08/08. 64-year-old white female hypertension admitted with fever, chills, shortness of breath found to have right-sided infiltrate. High-flow oxygen to maintain O2 saturations but comfortable. She said she is still coughing up phlegm . No further chest pain and appetite better. . Overall feels better each day. Urine strep antigen + Exam Narrative: Exam Narrative: Blood pressure 142/74 pulse 78 saturating 95% on high-flow 40% nasal cannula Pupils equal reactive light sclera anicteric Lungs some crackles right side posteriorly as before CV regular rate rhythm no murmurs Abdomen is soft nontender no masses Extremities without edema distal pulses are 2+ Neuro alert pleasant cooperative no focal deficits Objective Data Vital Signs Vital Signs: Vital Signs - 24 hr 08/08/19 12:00 08/08/19 13:30 08/08/19 13:43 Temperature 36.0 C L Pulse Rate 80 79 78 Respiratory Rate 24 H 20 20 Blood Pressure 125/54 L Pulse Oximetry 94 08/08/19 14:00 08/08/19 16:00 08/08/19 18:00 Temperature 35.9 C L Pulse Rate 84 90 82 Respiratory Rate 24 H Blood Pressure 140/68 Pulse Oximetry 92 08/08/19 19:39 08/08/19 20:00 08/08/19 20:26 Temperature 36.1 C L Pulse Rate 78 81 94 Respiratory Rate 24 H 24 H Blood Pressure 135/66 Pulse Oximetry 92 08/08/19 20:29 08/08/19 20:32 08/08/19 22:00 Temperature Pulse Rate 81 93 51 L Respiratory Rate 22 H 24 H Blood Pressure Pulse Oximetry 96 08/08/19 23:55 08/09/19 00:00 08/09/19 01:40 Temperature 36.0 C L Pulse Rate 61 58 L 68 Respiratory Rate 22 H 20 Blood Pressure 135/75 Pulse Oximetry 98 08/09/19 01:45 08/09/19 02:00 08/09/19 04:00 Temperature 36.0 C L Pulse Rate 68 47 L 50 L Respiratory Rate 20 20 Blood Pressure 127/68 Pulse Oximetry 91 08/09/19 05:59 08/09/19 07:24 08/09/19 07:26 Tem
[2019-08-09] MEDS: FAMOTIDINE 20 MG TABLET PO ×2 (16:29→20:01)
[2019-08-09 16:51] LABS: Legionella pneumophila Ag Ur Not Detected (Not Detected)
[2019-08-09] MEDS: MELATONIN 5 MG TABLET PO (20:01)
[2019-08-09] MEDS: METOPROLOL SUCCINATE EXT REL 25 MG TABCR PO (20:01)
[2019-08-09] MEDS: ENOXAPARIN 40 MG/0.4 ML SYRINGE SUB-Q (20:01)
[2019-08-10] VITALS (19 sets, daily range): BP systolic 102–147; BP diastolic 50–59; PULSE 50–112; RESP 18–20; TEMP 36.5–36.7; O2SAT 93–98
[2019-08-10] MEDS: IPRATROPIUM BR 0.02% INH SOLN 0.5 MG/2.5 ML VIAL INHALATION ×4 (02:21→20:41)
[2019-08-10] MEDS: ALBUTEROL SULFATE NEB 2.5 MG/0.5 ML INH INHALATION ×4 (02:21→20:41)
[2019-08-10 05:00] LABS: Basophils Absolute Auto 0.1 K/mm3 (0.0-0.1); Basophils Percent Auto 0.4 % (0.2-1.2); Eosinophils Absolute Auto 0.1 K/mm3 (0-0.3); Eosinophils Percent Auto 0.8 % (0-4.4); Hemoglobin 11.2 g/dL (12.0-15.0); Immature Granulocyte Absolute 0.71 K/mm3 (0.00-0.031); Immature Granulocyte Percent A 4.4 % (0-0.5); Mean Corpuscular HGB Conc 32.9 g/dl (32-36); Mean Corpuscular Hemoglobin 32.3 pg (26-34); Mean Platelet Volume 10.4 fl (7.4-10.4); Monocytes Absolute Auto 0.9 K/mm3 (0.1-0.6); Monocytes Percent Auto 5.8 % (2.6-8.5); Neutrophils Absolute Auto 10.5 K/mm3 (1.3-6.7); Neutrophils Percent Auto 65.6 % (45.5-73.1); Platelet Count Result 331 k/mm3 (150-375); Red Blood Count 3.47 M/mm3 (4.2-5.4); Red Cell Distribution Width 14.3 % (11.5-14.5); White Blood Count 16.1 K/mm3 (4.5-10.0)
[2019-08-10 05:14] LABS: Albumin Level 2.9 g/dL (3.5-5.1); Blood Urea Nitrogen 19 mg/dL (7-17); Calcium 8.7 mg/dL (8.4-10.2); Carbon Dioxide 25 mmol/L (22-30); Chloride 107 mmol/L (98-107); Estimated CRCL calculation 74 ml/min; Estimated Glomerular Filt Rate > 60; Glucose 111 mg/dL (65-105); Potassium 3.6 mmol/L (3.4-5.0); Sodium 136 mmol/L (137-145)
[2019-08-10] MEDS: ROSUVASTATIN 5 MG TABLET PO (08:40)
[2019-08-10] MEDS: FAMOTIDINE 20 MG TABLET PO ×2 (08:40→21:06)
--- NOTE | 2019-08-10 10:57 | PM.IMPN ---
Progress Note: A&P Assessment and Plan (1) Community acquired pneumonia: Qualifiers: Laterality: right Lung location: unspecified part of lung Qualified Code(s): J18.9 - Pneumonia, unspecified organism Code(s): J18.9 - Pneumonia, unspecified organism Status: Acute Assessment and Plan: Right lung PNA worse in the RUL. The patient was started on azithromycin and Rocephin Day 7. Blood and sputum cultures negative but urine Strept antigen positive. COVID negative x2. Continue with inhalers at this time. Patient is on high-flow oxygen at this time. Solumedrol stopped yesterday. CXR 08/09/19 showing improvement. WBC better off the steroids. Home soon. Wean O2. Home O2 evaluation tomorrow. (2) Acute respiratory failure with hypoxia: Code(s): J96.01 - Acute respiratory failure with hypoxia Status: Acute Assessment and Plan: Related to pneumonia. No CO2 retention. Symptomatically improved. Wean oxygen as tolerated. (3) HTN (hypertension) with goal to be determined: Code(s): I10 - Essential (primary) hypertension Status: Acute Assessment and Plan: Blood pressure reviewed on 08/10/2019. Blood pressure well controlled. Continue metoprolol. (4) Elevated d-dimer: Code(s): R79.89 - Other specified abnormal findings of blood chemistry Status: Acute Assessment and Plan: Venous Doppler negative and CTA negative for PE on 08/05. Continue Lovenox. (5) Hyperlipidemia: Code(s): E78.5 - Hyperlipidemia, unspecified Status: Chronic Assessment and Plan: LFTs stable. Continue with rosuvastatin. (6) Suspected COVID-19 virus infection: Code(s): Z20.828 - Contact with and (suspected) exposure to other viral communicable diseases Status: Acute Assessment and Plan: Negative x 2 so isolation stopped. Subjective Date/time seen: 08/10/19 10:57 Interval history: Date of visit 08/09. 64yo female here for PNA and resp failure. Assuming care. Chart reviewed. SOB better. Cough improved but worse when up walking. Eating normally without n/v. No diarrhea she has been up walking to the bathroom Exam Narrative: Exam Narrative: Blood pressure 132/59 pulse 73 saturating 95% on high-flow nasal cannula Gen - NARD lying semi-rcumbent in bed Chest - Right base inspiratory crackels, nml RR, no conversational dyspnea CV - RRR S1/S2; Tele showing occas bradycardia Abd - doft, NT/ND, +BS Ext - no pedal edema Neuro - nml mood and affect, no focal findings. Objective Data Vital Signs Vital Signs: Vital Signs - 24 hr 08/09/19 12:00 08/09/19 14:00 08/09/19 14:27 Temperature 97 F L Pulse Rate 56 L 55 L 59 L Respiratory Rate 24 H 20 Blood Pressure 137/79 Pulse Oximetry 97 08/09/19 14:32 08/09/19 16:00 08/09/19 18:00 Temperature 97.4 F L Pulse Rate 50 L 57 L 53 L Respiratory Rate 20 24 H Blood Pressure 141/74 H Pulse Oximetry 93 08/09/19 19:30 08/09/19 19:49 08/09/19 19:58 Temperature 97.7 F Pulse Rate 52 L 55 L 50 L Respiratory Rate 22 H 20 20 Blood Pressure 139/69 Pulse Oximetry 96 98 08/09/19 20:00 08/09/19 20:01 08/09/19 20:24 Temperature Pulse Rate 54 L 55 L Respiratory Rate Blood Pressure Pulse Oximetry 97 08/09/19 22:00 08/09/19 23:25 08/10/19 00:00 Temperature 97.9 F Pulse Rate 46 L 45 L 112 H Respiratory Rate 22 H Blood Pressure 131/69 Pulse Oximetry 99 08/10/19 02:00 08/10/19 02:21 08/10/19 02:29 Temperature Pulse Rate 51 L 54 L 57 L Respiratory Rate 20 20 Blood Pressure Pulse Oximetry 97 08/10/19 03:16 08/10/19 04:00 08/10/19 06:00 Temperature 98.1 F Pulse Rate 51 L 61 Respiratory Rate 20 Blood Pressure 102/50 L Pulse Oximetry 95 96 08/10/19 08:00 Temperature 97.7 F Pulse Rate 53 L Respiratory Rate 18 Blood Pressure 132/59 L Pulse Oximetry 95 Intake/Output Intake/Outp
--- NOTE | 2019-08-10 14:50 | PC.NURSE ---
This patient, Catrachito Silva, was transferred to [facility] on 08/10/19 at 1450. Personal belongings sent with patient. Report given to NICK Faith. Appropriate documentation sent with patient.
--- NOTE | 2019-08-10 15:37 | PC.NURSE ---
This patient, Catrachito Silva, was received from IMU on 08/10/19 at 1455. Personal belongings list checked and signed. Patient/family oriented to unit policies and routines
[2019-08-10] MEDS: MELATONIN 5 MG TABLET PO (21:06)
[2019-08-10] MEDS: METOPROLOL SUCCINATE EXT REL 25 MG TABCR PO (21:06)
[2019-08-10] MEDS: ENOXAPARIN 40 MG/0.4 ML SYRINGE SUB-Q (21:07)
[2019-08-11] VITALS (8 sets, daily range): BP systolic 133; BP diastolic 64; PULSE 63–66; RESP 18; TEMP 35.8; O2SAT 90–96
[2019-08-11] MEDS: ALBUTEROL SULFATE NEB 2.5 MG/0.5 ML INH INHALATION ×2 (02:05→08:32)
[2019-08-11] MEDS: IPRATROPIUM BR 0.02% INH SOLN 0.5 MG/2.5 ML VIAL INHALATION ×2 (02:05→08:32)
[2019-08-11 06:02] LABS: Hematocrit 36.1 % (37.0-47.0); Hemoglobin 12.1 g/dL (12.0-15.0); Mean Corpuscular HGB Conc 33.5 g/dl (32-36); Mean Corpuscular Hemoglobin 32.4 pg (26-34); Mean Corpuscular Volume 96.5 fl (80-100); Mean Platelet Volume 10.3 fl (7.4-10.4); Platelet Count Result 324 k/mm3 (150-375); Red Blood Count 3.74 M/mm3 (4.2-5.4); White Blood Count 12.7 K/mm3 (4.5-10.0)
[2019-08-11] MEDS: ROSUVASTATIN 5 MG TABLET PO (08:56)
[2019-08-11] MEDS: FAMOTIDINE 20 MG TABLET PO (08:56)
--- NOTE | 2019-08-11 08:59 | PCPTNOTE ---
The PT treatment was not completed today. Patient declined, stating she expected to discharge home today. Patient moving independently in room.
--- NOTE | 2019-08-11 10:22 | PCRCNOTE ---
HOME O2 EVAL DONE, NO HOME O2 NEEDED.
--- NOTE | 2019-08-11 11:42 | PCNWS ---
Weekly nutritional screen. Patient is tolerating current diet with adequate intake. No weight loss reported. No nutritional needs at this time.
--- NOTE | 2019-08-11 12:23 | PM.DS ---
DS: Admitting Diagnosis Admitting Diagnosis Admitting Diagnosis: Pneumonia, unspecified organism DS: Discharge Diagnosis Discharge Diagnosis (1) Community acquired pneumonia: Qualifiers: Laterality: right Lung location: unspecified part of lung Qualified Code(s): J18.9 - Pneumonia, unspecified organism Code(s): J18.9 - Pneumonia, unspecified organism Status: Acute Assessment and Plan: CTA chest on admission showing right lung PNA worse in the RUL. The patient was started on azithromycin and Rocephin. Blood and sputum cultures negative but urine Strept antigen positive. COVID negative x2. We continued with nebulizers. Patient required high-flow oxygen but able to weaned eventually to room air. Treated with Solumedrol as well. CXR 08/09/19 showing improvement. WBC better off the steroids. (2) Acute respiratory failure with hypoxia: Code(s): J96.01 - Acute respiratory failure with hypoxia Status: Acute Assessment and Plan: Related to pneumonia. No CO2 retention. Able to be weaned to room air. Home O2 evaluation showed patient did not require O2. (3) HTN (hypertension) with goal to be determined: Code(s): I10 - Essential (primary) hypertension Status: Acute Assessment and Plan: Blood pressure monitored daily. Blood pressure remained well controlled. We continued metoprolol. (4) Elevated d-dimer: Code(s): R79.89 - Other specified abnormal findings of blood chemistry Status: Acute Assessment and Plan: D-dimer positive. Venous Doppler negative and CTA negative for PE on 08/06/19. Lovenox used for prophylaxis. (5) Hyperlipidemia: Code(s): E78.5 - Hyperlipidemia, unspecified Status: Chronic Assessment and Plan: LFTs were stable. We continued with rosuvastatin. (6) Suspected COVID-19 virus infection: Code(s): Z20.828 - Contact with and (suspected) exposure to other viral communicable diseases Status: Acute Assessment and Plan: COVID negative x 2 so isolation stopped. DS: Summary Hospital Course Reason for hospitalization: 64yo female admitted for PNA and respiratory failure. Please see H&P for details. Hospital Course: As above Time Spent with Patient Time attestation: Total time spent providing and/or coordinating discharge services:32 minutes Time spent: Greater than 30 minutes Exam Narrative: Exam Narrative: Complains of pleuritic right upper back pain. No CP. Eating okay. On 2L but no O2 requirment with home O2 evaluation. Walking to the BR. AF 133/64 65 Gen - NARD Chest - bibasilar inspiratory crackles that improve after cough and deep breathing, nml RR, no conversational dyspnea CV - RRR S1/S2 Abd - soft, NT/ND, +BS Ext - no pedal edema, negative Homans, no cords Neuro - nml mood and affect, no focal findings. DS: Data Data Completed and Pending Labs on day of discharge: Labs from last 24 hours 08/11/19 05:25 WBC 12.7 H RBC 3.74 L Hgb 12.1 Hct 36.1 L MCV 96.5 MCH 32.4 MCHC 33.5 RDW 14.0 Plt Count 324 MPV 10.3 Discharge Plan Discharge Attending physician on discharge: Wolfgang Jenkins Discharging Clinician: Wolfgang Jenkins Anticipated Discharge Date/Time: 08/11/19 12:30 Patient Disposition: Home, Self-Care Activity: as tolerated Diet: regular Discharge Instructions: Please complete your abx until finished with presecription. Call your doctor or return to ER if having worsening shortness of breath or other worrisome symptoms. Patient Instructions: Antibiotic Form, How to Use an Incentive Spirometer (DC), Pain Management (DC), Community Acquired Pneumonia (DC), How To Wash Your Hands (DC), Fall Prevention (DC), Breathing Techniques (DC) Stand Alone Forms: General Discharge Information Follow-up/Referrals: Mitchell,MD Gottlieb ([place]) [Primary Care Provider] - Call for Appointment Dis
== END 2019-08-11 13:55 | disposition home or self-care (01) | DRG 193 ==
LOC: ANHED 14:22 → ANH3MEDSUR 18:47 → ANHICU 08-05 05:00 → ANHIMU 08-10 06:41 → ANH2MED 08-11 09:14 → ANH3MEDSUR 08-12 11:52 → ANHICU 08-12 11:52 → ANHIMU 08-12 11:52
PROVIDERS: Internal Medicine; Internal Medicine Critical Care Medicine; Nurse Practitioner; Admitting Provider Hospitalist; Emergency Provider Emergency Medicine; PCP Internal Medicine; Visit Provider Hospitalist
DX: J18.9 Pneumonia, unspecified organism (principal); J96.01 Acute respiratory failure with hypoxia; Z20.828 Contact with and (suspected) exposure to other viral communicable diseases; I10 Essential (primary) hypertension; E78.5 Hyperlipidemia, unspecified; R79.89 Other specified abnormal findings of blood chemistry; F17.210 Nicotine dependence, cigarettes, uncomplicated; Z85.3 Personal history of malignant neoplasm of breast
CPT/HCPCS: 36415; 36600; 71045; 71275; 80048; 80053; 80069; 81001; 82728; 82805; 83605; 83615; 83735; 83880; 84100; 84484; 85025; 85027; 85380; 85610; 85730; 86140; 87040; 87070; 87086; 87088; 87205; 87449; 87635; 87899; 93005; 93306; 93970; 94618; 94640; 96361; 96365; 96367; 97110; 97161; 97165; 97530; 97535; 99291; A9270; C9803; J0131; J0456; J0696; J1644; J1650; J2920; J2930; J3480; J7030; Q9967; U0003